=== PATIENT | female | born 1950 | race Caucasian/White ===

== ENCOUNTER 2018-07-26 09:57 | Day surgery (SDC) | payer MEDICARE ==
[2018-07-25 10:49] VITALS: BMI 22.4
[2018-07-26 10:28] VITALS: PULSE 80; RESP 20; TEMP 97.3; O2SAT 100
[2018-07-26] MEDS ORDERED: Propofol 10 mg/ml Inj (20 ML) ONE (10:56)
[2018-07-26 12:14] VITALS: BP 136/79
== END 2018-07-26 12:13 | disposition home or self-care (01) ==
LOC: C.ENDO 09:57
PROVIDERS: ATTEND Internal Medicine Gastroenterology
DX: Z12.11 Encounter for screening for malignant neoplasm of colon (principal); Z80.0 Family history of malignant neoplasm of digestive organs; D12.0 Benign neoplasm of cecum; D12.3 Benign neoplasm of transverse colon; K64.8 Other hemorrhoids
CPT/HCPCS: 45380; 45385; 88305; J2704